=== PATIENT | male | born 1985 | race Hispanic/Latino ===

== ENCOUNTER 2023-12-26 09:44 | Emergency (ER) | payer SELFPAY ==
--- NOTE | 2023-12-26 10:35 | RAD REPORT ---
EXAMINATION: CT ABDOMEN AND PELVIS WITH CONTRAST CLINICAL INDICATION: Abdominal pain TECHNIQUE: CT abdomen and pelvis was performed, after the administration of 100 cc Isovue-300.. Sagit myke and coronal reconstructions were obtained. One or more of the following dose reduction techniques were used: Automated exposure control, adjustment of the mA and kV according to patient si ze, and iterative reconstruction. Unless otherwise specified, incidental findings do not require dedicated imaging follow-up. [id number]. Oral contrast was not given which limits evaluation of bowel and appendix. COMPARISON: none FINDINGS: Fatty liver. Small hepatic cyst. The spleen, pancreas, adrenals and kidneys unremarkable. Normal appendix. No evidence of diverticulitis. Right and left IVC normal variant. : IMPRESSION: No acute abnormality displayed
[2023-12-26 10:41] LABS: Absolute Lymphocytes (CBC) 1.2 K/uL (0.7-4.9); Absolute Monocytes 0.5 K/uL (0.1-1.3); Absolute Neutrophil 3.4 K/uL (1.8-8.0); Basophils % 0.3 % (0-1.3); Eosinophils % 0.5 % (0-4.4); Hematocrit 48.5 % (39.6-49.0); Hemoglobin 16.4 g/dL (13.6-17.9); Lymphocytes % 22.8 % (15.3-44.8); MCH 32.7 pg (27.0-35.0); MCHC 33.9 g/dL (32.0-36.0); MCV 96.4 fL (80-100); MPV 8.2 fL (7.6-11.3); Neutrophils % 66.4 % (41.7-73.7); Nucleated Red Blood Cells % 0.1 % (0-0); Platelets 216 thou/uL (152-406); RBC Red Blood Cell Count 5.04 M/uL (4.33-5.43); Red Cell Distribution Width 12.1 % (12.1-15.2)
[2023-12-26 10:53] LABS: Albumin 4.1 g/dL (3.4-5.0); Albumin/Globulin Ratio 1.2 (1.1-1.8); Bilirubin Total 1.1 mg/dL (0.2-1.0); Globulin 3.5 g/dL (2.3-3.5); Protein, Total 7.6 g/dL (6.4-8.2)
[2023-12-26] MEDS ORDERED: ONDANSETRON 4 MG/2 ML VIAL ONE (11:00)
[2023-12-26] MEDS ORDERED: MAGNES/ALUMIN/SIMET 30ML UCUP ONE (11:00)
[2023-12-26] MEDS ORDERED: LIDOCAINE VISCOUS 2% 10ML ORAL SOLN ONE (11:01)
[2023-12-26] MEDS ORDERED: FAMOTIDINE 20 MG/2 ML VIAL IV ONE (11:01)
--- NOTE | 2023-12-26 11:15 | EDPHYS ---
Physician Documentation [facility] Name: Giorgi Whipple Age: 38 yrs Sex: Male : 1985 Arrival Date: 12/26/2023 Time: 09:44 Bed 24 Private MD: ED Physician Elvin Stevenson HPI: 12/25 10:07 This 38 yrs old Male presents to ER via Ambulatory with complaints of rn Abdominal Pain. 10:07 The patient presents with abdominal pain in the epigastric area. Onset: The rn symptoms/episode began/occurred 6 month(s) ago. The symptoms do not radiate. Associated signs and symptoms: Pertinent positives: nausea, Pertinent negatives: blood in stools, chest pain, diarrhea, fever, shortness of breath, vomiting, vomiting blood. The symptoms are described as achy. Modifying factors: The symptoms are alleviated by nothing, the symptoms are aggravated by food. Severity of pain: At its worst the pain was mild in the emergency department the pain is unchanged. The patient has experienced similar episodes in the past. Patient reports 6 months of epigastric discomfort, denies pain, reports feels more like bloating and achiness in the epigastrium. Reports has been seen in [place] for this before and given antacids, reports "did not work". Patient reports drinks often and does not eat much food but when he does food mixes discomfort worse for an hour or 2. No blood in stool. No history of ulcers.. Historical: - Allergies: 10:00 No Known Allergies; ap3 - Home Meds: 10:00 None [Active]; ap3 - PSHx: 10:00 None; ap3 - Immunization history:: Adult Immunizations up to date. - Infectious Disease History:: Denies. - Social history:: Smoking status: Patient denies any tobacco usage or history of. Patient uses alcohol. - Family history:: not pertinent. - Hospitalizations: : No recent hospitalization is reported. ROS: 10:07 Constitutional: Negative for fever, chills, and weight loss, Cardiovascular: Negative rn for chest pain, palpitations, and edema, Respiratory: Negative for shortness of breath, cough, wheezing, and pleuritic chest pain, Abdomen/GI: Positive for abdominal pain Back: Negative for injury and pain, : Negative for injury, bleeding, discharge, and swelling, MS/Extremity: Negative for injury and deformity, Neuro: Negative for headache, weakness, numbness, tingling, and seizure, Exam: 10:07 Constitutional: This is a well developed, well nourished patient who is awake, alert, rn and in no acute distress. Cardiovascular: Regular rate and rhythm. No pulse deficits. Respiratory: No increased work of breathing, no retractions or nasal flaring. Abdomen/GI: Soft, non-tender, no peritoneal signs. No distention. Negative Terry Vital Signs: 10:02 BP 151 / 110; Pulse 72; Resp 17; Temp 98.3; Pulse Ox 100% ; Weight 77.11 kg; Height 5 ap3 ft. 9 in. ; Pain 1/10; 10:45 BP 151 / 94; Pulse 63; Resp 18; Temp 98; Pulse Ox 100% ; kb3 11:24 BP 141 / 77; Pulse 68; Resp 17; Pulse Ox 98% ; ap3 10:02 Body Mass Index 25.10 (77.11 kg, 175.26 cm) ap3 10:02 Pain Scale: Adult ap3 MDM: 09:49 Medical Screening Exam initiated rn 11:13 Differential diagnosis: Cholelithiasis, gastritis, gastroesophageal reflux disease, rn non-specific abd pain, pancreatitis, Peptic Ulcer Disease. Data reviewed: vital signs, nurses notes, lab test result(s), radiologic studies, CT scan, and as a result, I will discharge patient. Counseling: I had a detailed discussion with the patient and/or guardian regarding the historical points, exam findings, and any diagnostic results supporting the discharge/admit diagnosis, lab results, radiology results, the need for outpatient follow up, to return to the emergency department if symptoms worsen or persist or if there are any questions or concerns that arise at home. Response to treatment: the patient's symptoms have mildly improved after treatment, and as a result, I will discharge patient. Special discussion: Based on the patient's Hx, exam, and Dx evaluation, there is no indication for emergent surgery or inpatient Tx. It is understood by the patient/guardian that if the Sx's persist or worsen they need to return immediately for re-evaluation. I discussed with the patient/guardian in detail that at this point there is no indication for admission to the hospital. It is understood, however, that if the symptoms persist or worsen the patient needs to return immediately for re-evaluation. Based on the history and exam findings, there is no indication for further emergent testing or inpatient evaluation. I discussed with the patient/guardian the need to see the primary care provider for further evaluation of the symptoms. ED course: No acute findings and workup today. No acute findings in CT abdomen pelvis. Recommend alcohol cessation, better diet for fatty liver and gastritis. Will prescribe antacid medication and went through lifestyle modification changes with the patient. 12/25 10:04 Order name: CBC with Diff; Complete Time: 10:48 rn 12/25 10:04 Order name: CMP; Complete Time: 10:54 rn 12/25 10:04 Order name: Lipase; Complete Time: 10:54 rn 12/25 10:04 Order name: CT Abd/Pelvis - IV Contrast Only; Complete Time: 10:39 rn 12/25 10:04 Order name: IV Saline Lock; Complete Time: 11:01 rn 12/25 10:04 Order name: Labs collected and sent; Complete Time: 11:02 rn Administered Medications: 11:10 Drug: Famotidine IVP 20 mg IVP once; dilute with 10 mL 0.9% NaCl; give over 2 minutes kb3 Route: IVP; Site: left antecubital; 11:25 Follow up: Response: No adverse reaction ap3 11:10 Drug: Ondansetron IVP 4 mg IVP once; over 2 minutes Route: IVP; Site: left antecubital; kb3 11:25 Follow up: Response: No adverse reaction ap3 11:10 Drug: GI Cocktail without - (Maalox PO 30 ml, Lidocaine Mucous Membrane 2 % 15 kb3 ml) PO once Route: PO; 11:24 Follow up: Response: No adverse reaction; Pain is decreased ap3 Disposition Summary: 12/26/23 11:14 Discharge Ordered Notes: Location: Home rn Problem: an ongoing problem rn Symptoms: have improved rn Condition: Stable rn Diagnosis - Gastritis, unspecified, without bleeding rn - Fatty (change of) liver, not elsewhere classified rn Followup: rn - With: Private Physician - When: As needed - Reason: Recheck today's complaints, Re-evaluation by your physician Discharge Instructions: - Discharge Summary Sheet rn - Gastritis, Adult rn Forms: - Medication Reconciliation Form rn - Antibiotic staff attorney - Prescription Opioid Use rn - Patient Portal Instructions rn - Leadership Thank You Letter rn - Work release form ap3 Prescriptions: - Protonix 40 mg Oral Tablet - take 1 tablet ORAL route once daily; 30 tablet; Refills: 0, Product Selection rn Permitted Signatures: Dispatcher [employer] Elvin Sneed MD MD rn Prokisch, Amanda, RN RN ap3 Katy Bland RN RN kb3
--- NOTE | 2023-12-26 11:15 | ER ---
Nurse's Notes [facility] Name: Giorgi Whipple Age: 38 yrs Sex: Male : 1985 Arrival Date: 12/26/2023 Time: 09:44 Bed 24 Private MD: Diagnosis: Gastritis, unspecified, without bleeding;Fatty (change of) liver, not elsewhere classified Presentation: 12/25 09:58 Chief complaint: Patient states: he has been having upper abdominal pain for approx 6 ap3 months. patient reports the pain to be a lot of pressure, no direct pain. patient denies any nausea or vomiting and denies changes in bowels. Coronavirus screen: At this time, the client does not indicate any symptoms associated with coronavirus-19. Ebola Screen: No symptoms or risks identified at this time. Risk Assessment: Do you want to hurt yourself or someone else? Patient reports no desire to harm self or others. Onset of symptoms is unknown. 09:58 Method Of Arrival: Ambulatory ap3 10:02 Initial Sepsis Screen: Does the patient meet any 2 criteria? No. Patient's initial ap3 sepsis screen is negative. Does the patient have a suspected source of infection? No. Patient's initial sepsis screen is negative. 10:02 Acuity: MATTHEW 3 ap3 Triage Assessment: 09:59 General: Appears in no apparent distress. Behavior is calm, cooperative, appropriate ap3 for age. Pain: Complains of pain in epigastric area and right upper quadrant Pain began 6 months ago. Neuro: Level of Consciousness is awake, alert, obeys commands, Oriented to person, place, time, situation, Appropriate for age Speech is normal. Cardiovascular: Patient's skin is warm and dry. Respiratory: Airway is patent Respiratory effort is even, unlabored, Respiratory pattern is regular, symmetrical. GI: Reports upper abdominal pain. Historical: - Allergies: 10:00 No Known Allergies; ap3 - Home Meds: 10:00 None [Active]; ap3 - PSHx: 10:00 None; ap3 - Immunization history:: Adult Immunizations up to date. - Infectious Disease History:: Denies. - Social history:: Smoking status: Patient denies any tobacco usage or history of. Patient uses alcohol. - Family history:: not pertinent. - Hospitalizations: : No recent hospitalization is reported. Screenin:02 Abuse screen: Denies threats or abuse. Nutritional screening: No deficits noted. ap3 Tuberculosis screening: No symptoms or risk factors identified. 10:02 [facility] ED Fall Risk Assessment (Adult) History of falling in the last 3 months, ap3 including since admission No falls in past 3 months (0 pts) Confusion or Disorientation No (0 pts) Intoxicated or Sedated No (0 pts) Impaired Gait No (0 pts) Mobility Assist Device Used No (0 pt) Altered Elimination No (0 pt) Score/Fall Risk Level 0 - 2 = Low Risk Oriented to surroundings, Maintained a safe environment, Educated pt \T\ family on fall prevention, incl call for assistance when getting out of bed, Assessed \T\ reinforced patient's understanding of fall precautions, Hourly rounding (assess needs \T\ fall precautionary measures) done, Used ambulatory aids as needed (educated on \T\ assisted with), Used gait belt as appropriate. Assessment: 10:03 GI: Bowel sounds present X 4 quads. Abd is soft. ap3 10:45 General: Appears in no apparent distress. Behavior is calm, cooperative. GI: Abdomen is kb3 flat, non-distended, Bowel sounds present X 4 quads. Abd is soft X 4 quads Abdomen is tender to palpation in epigastric area and right upper quadrant Reports upper abdominal pain, nausea. 11:25 Reassessment: Patient and/or family updated on plan of care and expected duration. Pain ap3 level reassessed. Patient is alert, oriented x 3, equal unlabored respirations, skin warm/dry/pink. Neuro: Level of Consciousness is awake, alert, obeys commands, Oriented to person, place, time, situation. Cardiovascular: Patient's skin is warm and dry. Respiratory: Airway is patent Respiratory effort is even, unlabored, Respiratory pattern is regular, symmetrical. Vital Signs: 10:02 BP 151 / 110; Pulse 72; Resp 17; Temp 98.3; Pulse Ox 100% ; Weight 77.11 kg; Height 5 ap3 ft. 9 in. ; Pain 1/10; 10:45 BP 151 / 94; Pulse 63; Resp 18; Temp 98; Pulse Ox 100% ; kb3 11:24 BP 141 / 77; Pulse 68; Resp 17; Pulse Ox 98% ; ap3 10:02 Body Mass Index 25.10 (77.11 kg, 175.26 cm) ap3 10:02 Pain Scale: Adult ap3 ED Course: 09:48 Patient arrived in ED. mg5 09:48 Elvin Stevenson MD is Attending Physician. rn 10:02 Triage completed. ap3 10:04 Arm band placed on right wrist. ap3 10:15 Inserted saline lock: 20 gauge in left antecubital area, using aseptic technique. Blood kb3 collected. Flushed with 10 mL NS. 10:19 CT completed. Patient tolerated procedure well. Note: 20g to lt ac by earlene in ct. labs sm9 collected and sent.. Patient moved to CT via wheelchair. Patient moved back from CT. 10:22 CT Abd/Pelvis - IV Contrast Only In Process Unspecified. EDMS 10:45 Patient has correct armband on for positive identification. Bed in low position. Call kb3 light in reach. Provided Education on: Plan of care, medications. 10:45 No provider procedures requiring assistance completed. kb3 11:25 IV discontinued, intact, bleeding controlled, No redness/swelling at site. Pressure ap3 dressing applied. Administered Medications: 11:10 Drug: Famotidine IVP 20 mg IVP once; dilute with 10 mL 0.9% NaCl; give over 2 minutes kb3 Route: IVP; Site: left antecubital; 11:25 Follow up: Response: No adverse reaction ap3 11:10 Drug: Ondansetron IVP 4 mg IVP once; over 2 minutes Route: IVP; Site: left antecubital; kb3 11:25 Follow up: Response: No adverse reaction ap3 11:10 Drug: GI Cocktail without - (Maalox PO 30 ml, Lidocaine Mucous Membrane 2 % 15 kb3 ml) PO once Route: PO; 11:24 Follow up: Response: No adverse reaction; Pain is decreased ap3 Medication: 11:25 VIS not applicable for this client. ap3 Outcome: 11:14 Discharge ordered by . rn 11:25 Discharged to home ambulatory, ap3 11:25 Condition: good 11:25 Discharge instructions given to patient, Instructed on discharge instructions, follow up and referral plans. medication usage, Demonstrated understanding of instructions, follow-up care, medications, Prescriptions given X 1, 11:26 Patient left the ED. ap3 Signatures: Dispatcher [employer] EDMS Stevenson, MD MD whitney Oconnor Amanda, RN RN ap3 Katy Bland, WHITNEY RN kb3 Jaimee Mittal 5 Sujata Leon [facility]
[2023-12-26 11:41] VITALS: TEMP 98
[2023-12-26 11:46] VITALS: BP 141/77; O2SAT 98
== END 2023-12-26 11:26 | disposition home or self-care (01) ==
LOC: ER 09:44
DX: K29.70 Gastritis, unspecified, without bleeding (principal); K76.0 Fatty (change of) liver, not elsewhere classified
CPT/HCPCS: 36415; 74177; 80053; 83690; 85025; J2405; Q9967